=== PATIENT | female | born 1970 | race Caucasian/White ===

== ENCOUNTER 2016-06-21 20:43 | Emergency (ER) | payer OTHER ==
--- NOTE | 2016-06-21 22:15 | ED NURSING NOTES ---
Clinical Report - Nurses [facility] [address] [place] [address] 06/21/2016 20:44 Patient: YVONNE SEGURA TRIAGE Triage time 21:02. Acuity: LEVEL 4. Chief Complaint: SKIN LESION, BOIL and TENDER AREA and . L labia majora spreading in to the labia minora. Onset 2 days ago, worsening; hurts to wipe; never experienced anything like this before. Initially thought it was a bruise after intercourse with fiance which normally goes away but this time has not gone away. Has gotten "cysts down there before but this is nothing compared to that this has taken over my whole left side.". 21:08 06/21/16. Alert. No acute distress. SEPSIS SCREEN: Sepsis Screen: negative. Negative (no infection suspected/documented). --21:08 Vikc Dawn R.N. 21:06/21/16. BP: 111/74 (regular adult cuff) taken on the left arm, via an automated monitor, while sitting. HR: 106 (normal rate). RR: 18 (regular, unlabored and normal). O2 saturation: 100% on room air. Temp: 98.6 F (oral). Pain level now: 03/17. --21:08 Vick Dawn R.N. Weight: 77.1 kg stated. Height/Length: 64 inches Per Patient. BMI: 29.2. --21:02 Vick Dawn R.N. Medications Gabapentin Oral (Back pain). --21:04 Vick Dawn R.N. Percocet Oral (Back pain). --21:04 Vick Dawn R.N. Chantix. --21:05 Vick Dawn R.N. Allergies No Known Drug Allergy. --21:04 Vick Dawn R.N. History Arrived by private vehicle. Historian: patient. Unaccompanied. Primary physician (Dr. Dennis Anne in [place]). Location - genitalia. It is described as painful. She has had severe vaginal discomfort associated with lesions (Hot, painful). No chills, fever, sweating episodes or difficulty with urination. Denies muscle aches. Treatment CUSTODIAL OFFICER: None. PAST MEDICAL HX: Immunizations: up-to-date. Last normal menstrual period- about 1 week ago. Has not received seasonal influenza immunization. SOCIAL HX: Current every day heavy tobacco smoker (cigarette)- 1 pack per day (In process of quiting smoking). Occasional alcohol use. No drug use. She has not traveled outside the [place] The patient was not exposed to MRSA. ABUSE ASSESSMENT: Abuse assessment: The patient was asked "Do you feel safe in your home?" and "Has anyone hurt you or threatened to hurt you?". No report of abuse. SELF HARM ASSESSMENT: A self harm assessment was performed. The patient answered "no" to the question "Do you have thoughts of harming or killing yourself?" and "Have you recently had thoughts about harming or killing others?". FALL RISK ASSESSMENT: Fall risk assessment completed. No fall risk identified. NUTRITIONAL RISK ASSESSMENT: The nutritional risk assessment revealed no deficiencies. FUNCTIONAL ASSESSMENT: Functional assessment: no impairments noted. LEARNING NEEDS ASSESSMENT: The learning needs assessment revealed no barriers. SKIN INTEGRITY ASSESSMENT: Skin integrity risk assessment completed. No skin integrity risk identified. --21:08 Vick Dawn R.N. PROBLEMS: Chronic Back Pain. --21:05 Vick Dawn R.N. ADDITIONAL SURGERIES: Liposuction with tummy tuck. --21:05 Vick Dawn R.N. Assessment GENERAL / NEURO / PSYCH: Alert. Oriented X 4. Appears in no acute distress. Sunny Coma Scale: 15- eyes open spontaneously (4); best verbal response- oriented x 4 (5); best motor response- obeys commands (6). Patient appears calm and cooperative. RESPIRATORY: Respirations not labored. SKIN: Skin is warm and dry. --21:08 Vick Dawn R.N. Interventions ID band on patient. To treatment room. No allergy band on patient. --21:08 Vick Dawn R.N. PHYSICAL ASSESSMENT 21:00 06/21/16. Ambulatory to room. GENERAL / NEURO / PSYCH: Alert. Oriented X 4. HEENT: Pupils equal, round and reactive to light. Mucous membranes are pink. RESPIRATORY: Breath sounds within normal limits. CVS: Capillary refill less than 2 seconds. SKIN: Skin is warm and dry. Skin lesion present- left labia. Skin tenderness present. Swelling present. Increased warmth present. Erythema present. --21:41 Awilda Varma R.N. NURSING PROGRESS NOTES 21:00 06/21/16. The initial plan of care for this patient includes an assessment with efforts to address the patient's anxiety; the presence of pain; impairment of the genitourinary and integumentary system. This plan of care was discussed with the patient. Patient gowned. Reassurance given. Patient identifiers checked. Call light placed in reach. Side rails up x 1. Bed placed in lowest position. Brakes of bed on. --21:39 Awilda Varma R.N. I & D: Incision and Drainage of abscess performed by ED physician (Dr. Friedman). Assisted by one nurse (LENARD Hickman). The abscess is located on the (L labia majora). Preparation: Incision and Drainage tray set up and suture tray set-up with 1% lidocaine. Procedure: skin cleansed with Betadine; a large amount of pus was drained. (Word catheter placed). Post-procedure: she was stable, no complications and bleeding controlled. Total time of assist / procedure: 15 minutes. --22:14 Vick Dawn R.N. DISPOSITION / DISCHARGE 22:35 06/21/16. Condition at departure: improved and stable. The goals identified in the patient's plan of care were met. No learning barriers present. Reviewed medication(s) side effects, precautions, dosing and course information. Prescription(s) given to the patient. Reviewed fever care and wound care instructions. Reviewed referral to a primary care physician for followup. Patient verbalized understanding. Written instructions provided in Croatian. The patient was discharged home and unaccompanied at time of discharge. She left the Emergency Department ambulatory and via private vehicle. Patient driving. FALL RISK ASSESSMENT: Fall risk assessment completed. No fall risk identified. --22:41 Awilda Varma R.N. 21:01 06/21/16. BP: 111/74 (regular adult cuff) taken on the left arm, via an automated monitor, while sitting. HR: 106 (normal rate). RR: 18 (regular, unlabored and normal). O2 saturation: 100% on room air. Temp: 98.6 F (oral). Pain level now: 03/17. --22:41 Awilda Varma R.N. Departure time: 22:35 Jun 21 2016. --22:41 Awilda Varma R.N. Locked/Released at 06/21/2016 22:41 by Awilda Varma R.N.
--- NOTE | 2016-06-21 22:15 | ED CLINICAL REPORT ---
Clinical Report - Physicians/Mid Levels [facility] [address] [place] [address] 06/21/2016 20:44 Patient: YVONNE SEGURA Arrived- By private vehicle. Historian- patient. HISTORY OF PRESENT ILLNESS Chief Complaint: VAGINAL PAIN. This started past several days and still present and worsening. It was gradual in onset and has been constant but is not gone now. Modifying factors- worsened by intercourse. Relieved by rest. The patient has had moderate vaginal pain (with swelling to the left labia). Sexually active. Similar symptoms previously: Several times. Recent medical care: Not recently seen/assessed. REVIEW OF SYSTEMS No nausea, headache, fever, anorexia or cough. No skin rash. All systems otherwise negative, except as recorded above. PAST HISTORY See nurses notes. ( tetanus is up-to-date per patient). SOCIAL HISTORY Smoker- current status unknown. Occasional alcohol use. No drug use. Is a local resident. FAMILY HISTORY Negative. ADDITIONAL NOTES The nursing notes have been reviewed. PHYSICAL EXAM Vital Signs: 06/21/2016 21:01 BP: 111/74. HR: 106. RR: 18. O2 saturation: 100%. Temp: 98.6 F. Pain level now: 10/10. Blood pressure normal. Oxygen saturation normal. Appearance: Alert. Oriented X3. No acute distress. HEENT: Normal external inspection. ENT: Pharynx normal. CVS: Heart sounds normal. Respiratory: No respiratory distress. Breath sounds normal. Chest nontender. Abdomen: Soft and nontender. Bowel sounds normal. No mass. Back: Normal external inspection. : (external genital examination reveals a swollen left sided abscess consistent with Bartholin's abscess. No overlying skin changes. Normal appearing external female genitalia. No abnormal discharge. No bleeding. Exam was performed with nursing state comptroller LENARD Hickman at all times. No evidence of foreign's gangrene). Skin: Skin warm and dry. Normal skin color. No rash. Normal skin turgor. Extremities: Extremities nontender. No lower extremity edema. PROGRESS AND PROCEDURES Incision & Drainage of Abscess: The risks of the procedure, benefits and alternatives were explained. Consent was obtained. Local anesthesia provided using 1% lidocaine. Skin cleansed with Betadine. The abscess was incised with a #11 surgical blade. A large amount of pus was drained. Cavity was irrigated with saline. Word catheter was placed. Estimated blood loss: 5 mL. Course of Care: the patient is a pleasant 45-year-old female with no pertinent past medical history presenting for urination of left-sided labial swelling. Signs and symptoms are consistent with Bartholin's abscess. I discussed with patient in regards to the diagnosis and plan. Patient is agreeable to bedside incision and drainage. Informed verbal consent obtained. Procedure was performed with the assistance of nursing staff LENARD Hickman at all times. Patient tolerated procedure well. A large amount of purulent material was drained from the abscess. Following procedure, patient reported significant improvement with her discomfort. No signs of sepsis or systemic involvement. Word catheter in place. I discussed with patient in regards to workup, diagnosis, home care, follow-up, and return precautions. All questions answered. Patient expressed understanding of these instructions and was agreeable to them. Had discussion with the patient in regards to high likelihood of recurrence of the abscess and need for outpatient follow-up. Prior to discharge, tachycardia noted to be resolved on bedside examination. Heart rate is 88 bpm. Disposition: Discharged. Condition: good. CLINICAL IMPRESSION Bartholin's abscess with incision and drainage (acute left). INSTRUCTIONS Warnings: GENERAL WARNINGS: Return or contact your physician immediately if your condition worsens or changes unexpectedly, if not improving as expected, or if other problems arise. Specifically return if pain, vomiting, bleeding, breathing difficulty or fever. Your Current Medications: CONTINUE TAKING THE FOLLOWING MEDICATIONS: Chantix*. Gabapentin Oral : Back pain. Percocet Oral : Back pain. Prescription Medications: Keflex 500 mg: take 1 capsule orally every 8 hours for 10 days. No refill. Substitution is permissible. (disp 30 caps) Bactrim DS 800 mg / 160 mg: take 1 tablet orally every 12 hours for 10 days. No refill. Substitution is permissible. (disp 20 tabs) Motrin 600 mg tablets: take 1 tablet orally every 6 hours as needed for pain or swelling. Dispense thirty (30). No refill. Substitution is permissible. (take with food) Follow-up: Return to the emergency department as needed. Follow up with your doctor in three days. Reason for referral: recheck today's concerns. Summary of care provided to patient via paper. Screening today revealed the patient's blood pressure to be in the normal range. The patient should follow up with a primary care provider for blood pressure management. (Electronically signed by Kevin Friedman Dr. 06/24/2016 16:42)
--- NOTE | 2016-06-21 22:15 | ED NURSING NOTES ---
Clinical Report - Nurses [facility] [address] [place] [address] 06/21/2016 20:44 Patient: YVONNE SEGURA TRIAGE Triage time 21:02. Acuity: LEVEL 4. Chief Complaint: SKIN LESION, BOIL and TENDER AREA and . L labia majora spreading in to the labia minora. Onset 2 days ago, worsening; hurts to wipe; never experienced anything like this before. Initially thought it was a bruise after intercourse with fiance which normally goes away but this time has not gone away. Has gotten "cysts down there before but this is nothing compared to that this has taken over my whole left side.". 21:08 06/21/16. Alert. No acute distress. SEPSIS SCREEN: Sepsis Screen: negative. Negative (no infection suspected/documented). --21:08 Vick Dawn R.N. 21:06/21/16. BP: 111/74 (regular adult cuff) taken on the left arm, via an automated monitor, while sitting. HR: 106 (normal rate). RR: 18 (regular, unlabored and normal). O2 saturation: 100% on room air. Temp: 98.6 F (oral). Pain level now: 03/17. --21:08 Vick Dawn R.N. Weight: 77.1 kg stated. Height/Length: 64 inches Per Patient. BMI: 29.2. --21:02 Vick Dawn R.N. Medications Gabapentin Oral (Back pain). --21:04 Vick Dawn R.N. Percocet Oral (Back pain). --21:04 Vick Dawn R.N. Chantix. --21:05 Vick Dawn R.N. Allergies No Known Drug Allergy. --21:04 Vick aDwn R.N. History Arrived by private vehicle. Historian: patient. Unaccompanied. Primary physician (Dr. Dnenis Anne in [place]). Location - genitalia. It is described as painful. She has had severe vaginal discomfort associated with lesions (Hot, painful). No chills, fever, sweating episodes or difficulty with urination. Denies muscle aches. Treatment PAIN MANAGEMENT SPECIALIST: None. PAST MEDICAL HX: Immunizations: up-to-date. Last normal menstrual period- about 1 week ago. Has not received seasonal influenza immunization. SOCIAL HX: Current every day heavy tobacco smoker (cigarette)- 1 pack per day (In process of quiting smoking). Occasional alcohol use. No drug use. She has not traveled outside the [place] The patient was not exposed to MRSA. ABUSE ASSESSMENT: Abuse assessment: The patient was asked "Do you feel safe in your home?" and "Has anyone hurt you or threatened to hurt you?". No report of abuse. SELF HARM ASSESSMENT: A self harm assessment was performed. The patient answered "no" to the question "Do you have thoughts of harming or killing yourself?" and "Have you recently had thoughts about harming or killing others?". FALL RISK ASSESSMENT: Fall risk assessment completed. No fall risk identified. NUTRITIONAL RISK ASSESSMENT: The nutritional risk assessment revealed no deficiencies. FUNCTIONAL ASSESSMENT: Functional assessment: no impairments noted. LEARNING NEEDS ASSESSMENT: The learning needs assessment revealed no barriers. SKIN INTEGRITY ASSESSMENT: Skin integrity risk assessment completed. No skin integrity risk identified. --21:08 Vick Dawn R.N. PROBLEMS: Chronic Back Pain. --21:05 Vick Dawn R.N. ADDITIONAL SURGERIES: Liposuction with tummy tuck. --21:05 Vick Dawn R.N. Assessment GENERAL / NEURO / PSYCH: Alert. Oriented X 4. Appears in no acute distress. Sunny Coma Scale: 15- eyes open spontaneously (4); best verbal response- oriented x 4 (5); best motor response- obeys commands (6). Patient appears calm and cooperative. RESPIRATORY: Respirations not labored. SKIN: Skin is warm and dry. --21:08 Vick Dawn R.N. Interventions ID band on patient. To treatment room. No allergy band on patient. --21:08 Vick Dawn R.N. PHYSICAL ASSESSMENT 21:00 06/21/16. Ambulatory to room. GENERAL / NEURO / PSYCH: Alert. Oriented X 4. HEENT: Pupils equal, round and reactive to light. Mucous membranes are pink. RESPIRATORY: Breath sounds within normal limits. CVS: Capillary refill less than 2 seconds. SKIN: Skin is warm and dry. Skin lesion present- left labia. Skin tenderness present. Swelling present. Increased warmth present. Erythema present. --21:41 Awilda Varma R.N. NURSING PROGRESS NOTES 21:00 06/21/16. The initial plan of care for this patient includes an assessment with efforts to address the patient's anxiety; the presence of pain; impairment of the genitourinary and integumentary system. This plan of care was discussed with the patient. Patient gowned. Reassurance given. Patient identifiers checked. Call light placed in reach. Side rails up x 1. Bed placed in lowest position. Brakes of bed on. --21:39 Awilda Varma R.N. I & D: Incision and Drainage of abscess performed by ED physician (Dr. Friedman). Assisted by one nurse (LENARD Hickman). The abscess is located on the (L labia majora). Preparation: Incision and Drainage tray set up and suture tray set-up with 1% lidocaine. Procedure: skin cleansed with Betadine; a large amount of pus was drained. (Word catheter placed). Post-procedure: she was stable, no complications and bleeding controlled. Total time of assist / procedure: 15 minutes. --22:14 Vick Dawn R.N. DISPOSITION / DISCHARGE 22:35 06/21/16. Condition at departure: improved and stable. The goals identified in the patient's plan of care were met. No learning barriers present. Reviewed medication(s) side effects, precautions, dosing and course information. Prescription(s) given to the patient. Reviewed fever care and wound care instructions. Reviewed referral to a primary care physician for followup. Patient verbalized understanding. Written instructions provided in Kazakh. The patient was discharged home and unaccompanied at time of discharge. She left the Emergency Department ambulatory and via private vehicle. Patient driving. FALL RISK ASSESSMENT: Fall risk assessment completed. No fall risk identified. --22:41 Awilda Varma R.N. 21:01 06/21/16. BP: 111/74 (regular adult cuff) taken on the left arm, via an automated monitor, while sitting. HR: 106 (normal rate). RR: 18 (regular, unlabored and normal). O2 saturation: 100% on room air. Temp: 98.6 F (oral). Pain level now: 03/17. --22:41 Awilda Varma R.N. Departure time: 22:35 Jun 21 2016. --22:41 Awilda Varma R.N. Locked/Released at 06/21/2016 22:41 by Awilda Varma R.N.
--- NOTE | 2016-06-24 16:43 | ED MAR SUMMARY ---
..... Medication Administration Record [facility] [address] [place], [place] [id number] Patient: YVONNE SEGURA Visit ID: [id number] 45y, F Weight: 77.1 kg Height/Length: 64 in BMI: 29.2 ALLERGIES: No Known Drug Allergy
--- NOTE | 2016-06-24 16:43 | ED MED RECONCILIATION SUMMARY ---
Patient: YVONNE SEGURA Medication Reconciliation Report [facility] VisitID: [id number] [address] [place] [address] 45y, F Registration Date/Time: 06/21/2016 Weight: 77.1 kg Height/Length: 64 in. BMI: 29.2 ALLERGIES: No Known Drug Allergy The patient's Home Medications are listed below: CONTINUE TAKING THE FOLLOWING MEDICATIONS: Chantix Gabapentin Oral, Back pain Percocet Oral, Back pain The source(s) of the original Home Medication information: Not obtained. The following Medications were given to the patient in the Emergency Department: None. The following Medications were prescribed to the patient: Keflex 500 mg: take 1 capsule orally every 8 hours for 10 days. No refill. Substitution is permissible.(disp 30 caps) -- Kevin Friedman Dr. Bactrim DS 800 mg / 160 mg: take 1 tablet orally every 12 hours for 10 days. No refill. Substitution is permissible.(disp 20 tabs) -- Kevin Friedman Dr. Motrin 600 mg tablets: take 1 tablet orally every 6 hours as needed for pain or swelling. Dispense thirty (30). No refill. Substitution is permissible.(take with food) -- Kevin Friedman Dr.
--- NOTE | 2016-06-24 16:43 | ED DISCHARGE INSTRUCTIONS ---
Patient: YVONNE SEGURA General Instructions [facility] VisitID: [id number] [place] [address] 45y, F Registration Date/Time: 06/21/2016 Bartholin's abscess with incision and drainage (acute left). INSTRUCTIONS Warnings: GENERAL WARNINGS: Return or contact your physician immediately if your condition worsens or changes unexpectedly, if not improving as expected, or if other problems arise. Specifically return if pain, vomiting, bleeding, breathing difficulty or fever. Your Current Medications: CONTINUE TAKING THE FOLLOWING MEDICATIONS: Chantix*. Gabapentin Oral : Back pain. Percocet Oral : Back pain. Prescription Medications: Keflex 500 mg: take 1 capsule orally every 8 hours for 10 days. No refill. Substitution is permissible. (disp 30 caps) Bactrim DS 800 mg / 160 mg: take 1 tablet orally every 12 hours for 10 days. No refill. Substitution is permissible. (disp 20 tabs) Motrin 600 mg tablets: take 1 tablet orally every 6 hours as needed for pain or swelling. Dispense thirty (30). No refill. Substitution is permissible. (take with food) Follow-up: Return to the emergency department as needed. Follow up with your doctor in three days. Reason for referral: recheck today's concerns. Summary of care provided to patient via paper. Screening today revealed the patient's blood pressure to be in the normal range. The patient should follow up with a primary care provider for blood pressure management. ADDITIONAL INFORMATION Bartholin's Cyst [I&D] The Bartholin's glands are very small glands found inside the labia (vaginal lips). The glands produce fluid to help keep the vagina moist. When the opening of a Bartholins gland becomes blocked, the gland will swell and form a cyst. A cyst feels like a firm lump within the labia, from to 2 in size. It is usually not painful, unless it becomes infected. There are two common methods for draining the fluid and preventing return of the cyst: -- A small rubber tube (Word catheter) may have been inserted into the cyst. This will probably fall out on its own, or can be removed by your doctor in 2-3 weeks. -- A stitch may be used to hold the incision open and prevent it from healing closed too soon. Most infections of Bartholins cysts are due to bacteria that are normally present in the vagina. But, sometimes a sexually transmitted disease (STD) such as Gonorrhea can cause the infection. A culture test of the fluid can determine this. Home Care: 1) Sit in a tub filled with about 6 inches of very hot water. Allow the water to run in order to keep it hot for a total of 10-15 minutes. Repeat this three times a day until pain is relieved. 2) You may use acetaminophen (Tylenol) or ibuprofen (Motrin, Advil) to control pain, unless another medicine was prescribed. [ NOTE : If you have chronic liver or kidney disease or ever had a stomach ulcer or GI bleeding, talk with your doctor before using these medicines.] 3) Avoid sexual intercourse until all of the swelling and pain is gone, any tubes or stitches have been removed, and you have finished any antibiotics that were given. 4) If the cause of your infection is found to be due to an STD, it will be necessary for your sexual partner to be treated. He should contact his own doctor or clinic, or go to the local Public Health Department. Follow Up with your doctor or as advised by our staff. If a culture test was taken, you may call in two days for the result. If a rubber catheter was inserted and it falls out before your appointment to have it removed, call us or your doctor for advice. Get Prompt Medical Attention if any of the following occur: -- Increasing redness, pain or swelling of the labia -- Fever over 100.5' F (38.0' C) after two days of treatment -- Increasing pain in the lower abdomen -- New rash or joint pain Cephalexin Monohydrate Oral tablet What is this medicine? CEPHALEXIN (sef a SAMMY in) is a cephalosporin antibiotic. It is used to treat certain kinds of bacterial infections It will not work for colds, flu, or other viral infections. How should I use this medicine? Take this medicine by mouth with a full glass of water. Follow the directions on the prescription label. This medicine can be taken with or without food. Take your medicine at regular intervals. Do not take your medicine more often than directed. Take all of your medicine as directed even if you think you are better. Do not skip doses or stop your medicine early. Talk to your research development manager regarding the use of this medicine in children. While this drug may be prescribed for selected conditions, precautions do apply. What side effects may I notice from receiving this medicine? Side effects that you should report to your doctor or health patient care associate as soon as possible: allergic reactions like skin rash, itching or hives, swelling of the face, lips, or tongue breathing problems pain or trouble passing urine redness, blistering, peeling or loosening of the skin, including inside the mouth severe or watery diarrhea unusually weak or tired yellowing of the eyes, skin Side effects that usually do not require medical attention (report to your doctor or health patient care associate if they continue or are bothersome): gas or heartburn genital or anal irritation headache joint or muscle pain nausea, vomiting What may interact with this medicine? probenecid some other antibiotics What if I miss a dose? If you miss a dose, take it as soon as you can. If it is almost time for your next dose, take only that dose. Do not take double or extra doses. There should be at least 4 to 6 hours between doses. Where should I keep my medicine? Keep out of the reach of children. Store at room temperature between 59 and 86 degrees F (15 and 30 degrees C). Throw away any unused medicine after the expiration date. What should I tell my health care provider before I take this medicine? They need to know if you have any of these conditions: kidney disease stomach or intestine problems, especially colitis an unusual or allergic reaction to cephalexin, other cephalosporins, penicillins, other antibiotics, medicines, foods, dyes or preservatives or trying to get breast-feeding What should I watch for while using this medicine? Tell your doctor or health patient care associate if your symptoms do not begin to improve in a few days. Do not treat diarrhea with over the counter products. Contact your doctor if you have diarrhea that lasts more than 2 days or if it is severe and watery. If you have diabetes, you may get a false-positive result for sugar in your urine. Check with your doctor or health patient care associate. Sulfamethoxazole, Trimethoprim Oral tablet What is this medicine? SULFAMETHOXAZOLE; TRIMETHOPRIM or SMX-TMP (suhl fuh meth OK scar zohl; trye METH oh prim) is a combination of a sulfonamide antibiotic and a second antibiotic, trimethoprim. It is used to treat or prevent certain kinds of bacterial infections. It will not work for colds, flu, or other viral infections. How should I use this medicine? Take this medicine by mouth with a full glass of water. Follow the directions on the prescription label. Take your medicine at regular intervals. Do not take it more often than directed. Do not skip doses or stop your medicine early. Talk to your research development manager regarding the use of this medicine in children. Special care may be needed. This medicine has been used in children as young as 2 months of age. What side effects may I notice from receiving this medicine? Side effects that you should report to your doctor or health patient care associate as soon as possible: allergic reactions like skin rash or hives, swelling of the face, lips, or tongue breathing problems fever or chills, sore throat irregular heartbeat, chest pain joint or muscle pain pain or difficulty passing urine red pinpoint spots on skin redness, blistering, peeling or loosening of the skin, including inside the mouth unusual bleeding or bruising unusually weak or tired yellowing of the eyes or skin Side effects that usually do not require medical attention (report to your doctor or health patient care associate if they continue or are bothersome): diarrhea dizziness headache loss of appetite nausea, vomiting nervousness What may interact with this medicine? Do not take this medicine with any of the following medications: aminobenzoate potassium dofetilide metronidazole This medicine may also interact with the following medications: MOISES inhibitors like benazepril, enalapril, lisinopril, and ramipril cyclosporine digoxin diuretics indomethacin medicines for diabetes methenamine methotrexate phenytoin potassium supplements pyrimethamine sulfinpyrazone tricyclic antidepressants warfarin What if I miss a dose? If you miss a dose, take it as soon as you can. If it is almost time for your next dose, take only that dose. Do not take double or extra doses. Where should I keep my medicine? Keep out of the reach of children. Store at room temperature between 20 to 25 degrees C (68 to 77 degrees F). Protect from light. Throw away any unused medicine after the expiration date. What should I tell my health care provider before I take this medicine? They need to know if you have any of these conditions: anemia asthma being treated with anticonvulsants if you frequently drink alcohol containing drinks kidney disease liver disease low level of folic acid or [id number] dehydrogenase poor nutrition or malabsorption porphyria severe allergies thyroid disorder an unusual or allergic reaction to sulfamethoxazole, trimethoprim, sulfa drugs, other medicines, foods, dyes, or preservatives or trying to get breast-feeding What should I watch for while using this medicine? Tell your doctor or health patient care associate if your symptoms do not improve. Drink several glasses of water a day to reduce the risk of kidney problems. Do not treat diarrhea with over the counter products. Contact your doctor if you have diarrhea that lasts more than 2 days or if it is severe and watery. This medicine can make you more sensitive to the sun. Keep out of the sun. If you cannot avoid being in the sun, wear protective clothing and use a sunscreen. Do not use sun lamps or tanning beds/booths. Ibuprofen Oral tablet What is this medicine? IBUPROFEN (eye BYOO proe fen) is a non-steroidal anti-inflammatory drug (NSAID). It is used for dental pain, fever, headaches or migraines, osteoarthritis, rheumatoid arthritis, or painful monthly periods. It can also relieve minor aches and pains caused by a cold, flu, or sore throat. How should I use this medicine? Take this medicine by mouth with a glass of water. Follow the directions on the prescription label. Take this medicine with food if your stomach gets upset. Try to not lie down for at least 10 minutes after you take the medicine. Take your medicine at regular intervals. Do not take your medicine more often than directed. A special MedGuide will be given to you by the pharmacist with each prescription and refill. Be sure to read this information carefully each time. Talk to your research development manager regarding the use of this medicine in children. Special care may be needed. What side effects may I notice from receiving this medicine? Side effects that you should report to your doctor or health patient care associate as soon as possible: allergic reactions like skin rash, itching or hives, swelling of the face, lips, or tongue black or bloody stools, blood in the urine or in vomit breathing problems changes in vision chest pain general ill feeling or flu-like symptoms nausea or vomiting redness, blistering, peeling or loosening of the skin, including inside the mouth slurred speech or weakness on one side of the body stomach pain unexplained weight gain or swelling unusually weak or tired yellowing of eyes or skin Side effects that usually do not require medical attention (report to your doctor or health patient care associate if they continue or are bothersome): constipation or diarrhea dizziness gas or heartburn stomach upset What may interact with this medicine? Do not take this medicine with any of the following medications: cidofovir ketorolac methotrexate pemetrexed This medicine may also interact with the following medications: alcohol aspirin diuretics lithium other drugs for inflammation like prednisone warfarin What if I miss a dose? If you miss a dose, take it as soon as you can. If it is almost time for your next dose, take only that dose. Do not take double or extra doses. Where should I keep my medicine? Keep out of the reach of children. Store at room temperature between 15 and 30 degrees C (59 and 86 degrees F). Keep container tightly closed. Throw away any unused medicine after the expiration date. What should I tell my health care provider before I take this medicine? They need to know if you have any of these conditions: asthma cigarette smoker drink more than 3 alcohol containing drinks a day heart disease or circulation problems such as heart failure or leg edema (fluid retention) high blood pressure kidney disease liver disease stomach bleeding or ulcers an unusual or allergic reaction to ibuprofen, aspirin, other NSAIDS, other medicines, foods, dyes, or preservatives or trying to get breast-feeding What should I watch for while using this medicine? Tell your doctor or healthcare professional if your symptoms do not start to get better or if they get worse. This medicine does not prevent heart attack or stroke. In fact, this medicine may increase the chance of a heart attack or stroke. The chance may increase with longer use of this medicine and in people who have heart disease. If you take aspirin to prevent heart attack or stroke, talk with your doctor or health patient care associate. Do not take other medicines that contain aspirin, ibuprofen, or naproxen with this medicine. Side effects such as stomach upset, nausea, or ulcers may be more likely to occur. Many medicines available without a prescription should not be taken with this medicine. This medicine can cause ulcers and bleeding in the stomach and intestines at any time during treatment. Ulcers and bleeding can happen without warning symptoms and can cause . To reduce your risk, do not smoke cigarettes or drink alcohol while you are taking this medicine. You may get drowsy or dizzy. Do not drive, use machinery, or do anything that needs mental alertness until you know how this medicine affects you. Do not stand or sit up quickly, especially if you are an older patient. This reduces the risk of dizzy or fainting spells. This medicine can cause you to bleed more easily. Try to avoid damage to your teeth and gums when you brush or floss your teeth. You have been given the following additional information: Bartholin's Cyst (I And D) Cephalexin Monohydrate Oral tablet Sulfamethoxazole, Trimethoprim Oral tablet Ibuprofen Oral tablet (Electronically signed by Kevin Friedman Dr. 06/24/2016 16:42)
--- NOTE | 2016-06-24 16:43 | ED MAR SUMMARY ---
..... Medication Administration Record [facility] [address] [place], [place] [id number] Patient: YVONNE SEGURA Visit ID: [id number] 45y, F Weight: 77.1 kg Height/Length: 64 in BMI: 29.2 ALLERGIES: No Known Drug Allergy
--- NOTE | 2016-06-24 16:43 | ED MED RECONCILIATION SUMMARY ---
Patient: YVONNE SEGURA Medication Reconciliation Report [facility] VisitID: [id number] [address] [place] [address] 45y, F Registration Date/Time: 06/21/2016 Weight: 77.1 kg Height/Length: 64 in. BMI: 29.2 ALLERGIES: No Known Drug Allergy The patient's Home Medications are listed below: CONTINUE TAKING THE FOLLOWING MEDICATIONS: Chantix Gabapentin Oral, Back pain Percocet Oral, Back pain The source(s) of the original Home Medication information: Not obtained. The following Medications were given to the patient in the Emergency Department: None. The following Medications were prescribed to the patient: Keflex 500 mg: take 1 capsule orally every 8 hours for 10 days. No refill. Substitution is permissible.(disp 30 caps) -- Kevin Friedman Dr. Bactrim DS 800 mg / 160 mg: take 1 tablet orally every 12 hours for 10 days. No refill. Substitution is permissible.(disp 20 tabs) -- Kevin Friedman Dr. Motrin 600 mg tablets: take 1 tablet orally every 6 hours as needed for pain or swelling. Dispense thirty (30). No refill. Substitution is permissible.(take with food) -- Kevin Friedman Dr.
== END 2016-06-21 22:35 | disposition home or self-care (01) ==
LOC: ED SRH 20:43
DX: N75.1 Abscess of Bartholin's gland (principal); F17.210 Nicotine dependence, cigarettes, uncomplicated